=== PATIENT | female | born 1925 | race Caucasian/White ===

== ENCOUNTER → 2016-05-20 | Outpatient (CLI) | payer OTHER, BC ==
[~2016-05-20] MED LIST: ASPI-435 PO; ASPI81TA28 PO; CALC-574 PO; CALC600T37 PO; CALCTAB5 PO; CHOL200010 PO; CMD/25 PO; CMD25 PO; CRG40 PO; DIGO0.1219 PO; ERGO500037 PO; FLUC150T PO; FURO40TA3 PO; HYDR-5688 PO; HYDR25SU20 PR; LSX40 PO; MULT-1027 PO; MULTTAB58 PO; NADO80TA PO; POTA20TA13 PO; TEMA-79 PO; VTMD1000 PO
== END | disposition home or self-care (01) ==
LOC: C.PATHSPEC 14:57
PROVIDERS: ATTEND Obstetrics & Gynecology
DX: R87.619 Unspecified abnormal cytological findings in specimens from cervix uteri (principal)

== ENCOUNTER 2016-06-12 20:22 | Emergency (ER) | payer OTHER, BC ==
[~2016-06-12] VITALS: Ht 170.2 cm; Wt 75.0 kg
[~2016-06-12 20:22] MED LIST changes: -ASPI-435 PO; -CALC-574 PO; -CALC600T37 PO; -CMD25 PO; -CRG40 PO; -DIGO0.1219 PO; -HYDR-5688 PO; -HYDR25SU20 PR; -LSX40 PO; -MULT-1027 PO; -VTMD1000 PO
[2016-06-12 20:25] VITALS: TEMP 37; Ht 170.2 cm; Wt 75.0 kg
[2016-06-12] MEDS ORDERED: LSX40 PO (21:22)
[2016-06-12] MEDS ORDERED: CMD25 PO (21:22)
[2016-06-12] MEDS ORDERED: MULT-1027 PO (21:22)
[2016-06-12] MEDS ORDERED: VTMD1000 PO (21:22)
[2016-06-12] MEDS ORDERED: CALC600T37 PO (21:22)
[2016-06-12] MEDS ORDERED: ASPI-435 PO (21:22)
[2016-06-12] MEDS ORDERED: CRG40 PO (21:22)
[2016-06-12] MEDS ORDERED: DIGO0.1219 PO (21:24)
--- NOTE | 2016-06-12 21:24 | DIAGNOSTIC IMAGING REPORT ---
LEFT SHOULDER MIN 2 VIEWS ROUTINE CLINICAL HISTORY: left shoulder pain pain COMPARISON: None. DISCUSSION: Considerable degenerative change acromioclavicular and glenohumeral joint. Moderate calcific supraspinatus tendinitis. Moderate synovial calcification. No well-defined fracture or dislocation. There is no evidence for soft tissue swelling. IMPRESSION: 1. Severe degenerative change. 2. Moderate calcific supraspinatus tendinitis. 3. Degenerative synovial calcifications. 4. No evidence for fracture or dislocation. Electronically signed by: Jamey Fletcher M.D. 06/12/2016 9:22 PM Dictated Date/Time: 06/12/2016 9:22 PM
[2016-06-12] MEDS ORDERED: HYDROCODONE/APAP 2.5MG/108MG ELIX 5 ML UDP PO PRN (21:45)
[2016-06-12] MEDS ORDERED: HYDROCODONE/ACETAMOPHEN 5/325MG TAB PO ONE (21:45)
[2016-06-12] MEDS ORDERED: HYDR-5688 PO (22:19)
[2016-06-12] MEDS ORDERED: NORCO 5/325MG HOME PACK PO ONE (22:30)
[2016-06-12 22:49] VITALS: BP 126/70; PULSE 66; O2SAT 99
--- NOTE | 2016-06-13 00:40 | EMERGENCY ROOM VISIT NOTE ---
History Report prepared by Zari: Ganesh Sadler Under the Supervision of: Dr. Andrea Howell D.O. First contact with patient: 20:29 Chief Complaint: SHOULDER PAIN Stated Complaint: SORE LEFT SHOULDER History of Present Illness The patient is a 89 year old female who presents to the Emergency Room with complaints of constant pain in her left shoulder since yesterday. The patient states that she was reaching for something in a high cupboard when she injured her left shoulder. The patient's current pain is worsened with movement. She denies any tingling, numbness, or weakness in the left arm. She took Tylenol at 1630 this evening. Her pain is significantly worsened with movement. Patient has not bites at this time. Source of History: patient Onset: One day [employer] Position: shoulder (left) Timing: constant Modifying Factors (Worsening): movement Associated Symptoms: No numbness, No weakness Review of Systems See HPI for pertinent positives & negatives. A total of 10 systems reviewed and were otherwise negative. Past Medical & Surgical Medical Problems: (1) Atrial fibrillation (2) HYPERPARATHYROIDISM, UNSPECIFIED (3) HYPERTENSION NOS (4) PURE HYPERCHOLESTEROLEM Atrial fibrillation Family History FH: cancer Hypertension Social History Smoking Status: Never Smoker Drug Use: none Marital Status: Housing Status: lives alone Occupation Status: retired Current/Historical Medications Scheduled Aspirin (Aspirin 81), 81 MG PO HS Calcium (Calcium), 600 MG PO BID Cholecalciferol (Vitamin D3), 1,000 INTERUNIT PO HS Furosemide (Furosemide), 40 MG PO QAM Multiple Vitamin (Multi Vitamin), 1 TAB PO HS Nadolol (Nadolol), 120 MG PO QAM Potassium Chloride Microencaps (Potassium Chloride Er), 40 MEQ PO DAILY Warfarin Sod (Coumadin), 2.5 MG PO DAILY Scheduled PRN Digoxin (Digox), 125 MCG PO DAILY PRN for ATRIAL FIBRILLATION Hydrocodone/Acetaminophen 5MG/325MG ([place] 5MG/325MG), 1 TAB PO TID PRN for Pain Temazepam (Restoril), 15 MG PO HS PRN Allergies Coded Allergies: Lisinopril (Verified Allergy, Unknown, back pain, 06/12/16) Acetaminophen (Verified Adverse Reaction, Mild, nausea and vomiting, ) Cantaloupe (Verified Adverse Reaction, Mild, STOMACH UPSET, 06/12/16) Oxycodone (Verified Adverse Reaction, Mild, nausea and vomiting, 06/12/16) Physical Exam Vital Signs Date Time Temp Pulse Resp B/P Pulse Ox O2 Delivery O2 Flow Rate FiO2 06/12/16 22:49 66 126/70 99 06/12/16 20:25 37.0 117 20 195/101 99 Room Air Physical Exam GENERAL: Patient is sitting up in bed, holding left arm, alert, disheveled, no distress, non-toxic EYE EXAM: normal conjunctiva OROPHARYNX: no exudate, no erythema, lips, buccal mucosa, and tongue normal and mucous membranes are moist NECK: supple, no nuchal rigidity, no adenopathy, non-tender LUNGS: Clear to auscultation. Normal chest wall mechanics HEART: Tachycardiac. no murmurs, S1 normal and S2 normal ABDOMEN: abdomen soft, non-tender, normo-active bowel sounds, no masses, no rebound or guarding. SKIN: no rashes and no bruising UPPER EXTREMITIES: Tenderness to palpation over the left humeral head and left trapezius. Pain with abduction, flexion, and extension of the shoulder. Flexion and extension of the shoulder, elbow, wrist grasp and abduction digit 5/5. Radial pulses are 2/4. LOWER EXTREMITIES: No pitting edema. NEURO EXAM: Normal sensorium, cranial nerves II-XII grossly intact, normal speech, no gross weakness of legs. Medical Decision & Procedures ER Provider Diagnostic Interpretation: Xray results per the radiologist and my interpretation. Other results have been interpreted by the radiologist and reviewed by me. LEFT SHOULDER MIN 2 VIEWS ROUTINE CLINICAL HISTORY: left shoulder pain pain COMPARISON: None. DISCUSSION: Considerable degenerative change acromioclavicular and glenohumeral joint. Moderate calcific supraspinatus tendinitis. Moderate synovial calcification. No well-defined fracture or dislocation. There is no evidence for soft tissue swelling. IMPRESSION: 1. Severe degenerative change. 2. Moderate calcific supraspinatus tendinitis. 3. Degenerative synovial calcifications. 4. No evidence for fracture or dislocation. Electronically signed by: Jamey Fletcher M.D. 06/12/2016 9:22 PM Dictated Date/Time: 06/12/2016 9:22 PM Medications Administered Medications (Trade) Dose Ordered Sig/Tequila Route Start Time Stop Time Status Last Admin Dose Admin Acetaminophen/ Hydrocodone Bitart ([place] 5/325 Tab) 1 tab NOW ONCE PO 06/12/16 21:45 06/12/16 21:46 DC 06/12/16 21:50 1 TAB Acetaminophen/ Hydrocodone Bitart ([place] 5/325mg Home Pack) 1 homepack UD ONCE PO 06/12/16 22:30 06/12/16 22:31 DC 06/12/16 22:32 1 HOMEPACK ED Course ED COURSE: Vital signs were reviewed and showed Hypertensive Vitals The patients medical record was reviewed The above diagnostic studies were performed and reviewed. ED treatments and interventions as stated above. 2041: The patient was evaluated in room A9. A complete history and physical examination was performed. 2144: Ordered Acetaminophen 1 tablet PO, Acetaminophen 10 mL PO. 2229: Ordered Acetaminophen 1 homepack PO. 2230: Upon reevaluation, the patient is resting comfortably.I discussed my findings with the patient and she understands and agrees with the treatment plan. Based on the patients age, coexisting illnesses, exam and lab findings the decision to treat as an outpatient was made. The patient remained stable while under my care. The patient appeared well at the time of discharge. Medical Decision Differential diagnosis: Etiologies such as fracture, dislocation, intra-abdominal, pneumothorax, intrathoracic , intracranial, neurologic, as well as other traumatic pathologies were entertained. The patient's history was concerning for traumatic injury. Patient is complaining of severe left shoulder pain which started when she was reaching into a cabinet last night. She has no weakness in her arm. She completed neurologically intact. No trauma. X-rays of the shoulder show calcified tendinitis along with arthritis. She is given oral narcotic with improvement in her pain. She is discharged follow-up with orthopedics on Wednesday. Discussed with Pt concerning signs and symptoms to watch out for. Pt was instructed to follow up with their PCP and discussed with the patient their option to return to the ED at anytime for persistent or worsening symptoms. The appropriate anticipatory guidance and out-patient management, including indications for return to the emergency department, were explained at length to the patient and understood. Impression Primary Impression: Shoulder pain, acute Scribe Attestation The scribe's documentation has been prepared under my direction and personally reviewed by me in its entirety. I confirm that the note above accurately reflects all work, treatment, procedures, and medical decision making performed by me. Departure Information Dispostion Home / Self-Care Prescriptions Hydrocodone/Acetaminophen 5MG/325MG ([place] 5MG/325MG) Tab 1 TAB PO TID Y for Pain, #20 TAB PRN PAIN Prov: Andrea Howell, DO 06/12/16 Referrals Preston Vásquez M.D. (PCP) Forms HOME CARE DOCUMENTATION FORM, IMPORTANT VISIT INFORMATION Patient Instructions My [facility] Additional Instructions Please follow up with your primary care doctor with in the next 24 hours. Any worsening of your symptoms, please return to the ED immediately. This includes any fevers greater than 100.4, worsening pain, weakness in your arm, numbness in her arm, or any other concerning signs or symptoms from your stand point. Please do not take Tylenol/acetaminophen in combination with your prescription. You were given medications during this visit that will inhibit your ability to drive, operate machinery and work. Please do NOT drive, operate machinery or work for the next 12hrs. You were also given a prescription for a narcotic. While taking this medication you should also not drive, operate machinery and or work. Problem Qualifiers Primary Impression: Shoulder pain, acute Laterality: left Qualified Codes: M25.512 - Pain in left shoulder
== END 2016-06-12 22:50 | disposition home or self-care (01) ==
LOC: C.EDB 20:23 → C.EDA 22:50
DX: M25.512 Pain in left shoulder (principal); I48.91 Unspecified atrial fibrillation; E78.00 Pure hypercholesterolemia, unspecified; I10 Essential (primary) hypertension; Z79.01 Long term (current) use of anticoagulants; Z82.49 Family history of ischemic heart disease and other diseases of the circulatory system

== ENCOUNTER → 2016-07-24 | Outpatient (CLI) | payer OTHER, BC ==
[~2016-07-24] MED LIST changes: +ASPI-435 PO; -ASPI81TA28 PO; +CALC-574 PO; +CALC600T37 PO; -CALCTAB5 PO; -CHOL200010 PO; -CMD/25 PO; +CMD25 PO; +CRG40 PO; +DIGO0.1219 PO; -ERGO500037 PO; -FLUC150T PO; -FURO40TA3 PO; +HYDR-5688 PO; +HYDR25SU20 PR; +LSX40 PO; +MULT-1027 PO; -MULTTAB58 PO; +VTMD1000 PO
[2016-07-24 12:23] LABS: BASO % 0.2 %; BASO ABS # 0.02 K/uL (0-0.2); COMPLETE YES; EOS % 2.1 %; HEMATOCRIT 46.8 % (37-47); IG% 0.1 %; LYMPH % 24.3 %; LYMPH ABS # 1.99 K/uL (1.2-3.4); MEAN CELL VOLUME 96.7 fL (80-100); MEAN CORPUSCULAR HEMOGLOBIN 31.8 pg (25-34); MEAN CORPUSCULAR HGB CONC 32.9 g/dl (32-36); MEAN PLATELET VOLUME 10.5 fL (7.4-10.4); MONO % 7.8 %; NEUT % 65.5 %; PLATELET COUNT 273 K/uL (130-400); RED BLOOD COUNT 4.84 M/uL (4.2-5.4); WHITE BLOOD COUNT 8.18 K/uL (4.8-10.8)
[2016-07-24 12:33] LABS: ALT/SGPT 28 U/L (12-78); AST/SGOT 24 U/L (15-37); BLOOD UREA NITROGEN 26 mg/dl (7-18); BUN/CREATININE RATIO 25.6 (10-20); CALCIUM 11.2 mg/dl (8.5-10.1); CARBON DIOXIDE 30 mmol/L (21-32); CHLORIDE 104 mmol/L (98-107); CHOLESTEROL 165 mg/dl (0-200); GLUCOSE 121 mg/dl (70-99); POTASSIUM 4.2 mmol/L (3.5-5.1); SODIUM 141 mmol/L (136-145); TRIGLYCERIDES 118 mg/dl (0-150); VERY LOW DENSITY LIPOPROT CALC 24 mg/dl
[2016-07-24 12:43] LABS: ALB/GLOB RATIO 1.1 (0.9-2); ALKALINE PHOSPHATASE 98 U/L (45-117); CHOLESTEROL/HDL RATIO 3.4; HDL CHOLESTEROL 49 mg/dl; LDL CHOLESTEROL CALCULATED 92 mg/dl
== END | disposition home or self-care (01) ==
LOC: C.LABPVFM 08:51
PROVIDERS: ATTEND Internal Medicine
DX: E21.3 Hyperparathyroidism, unspecified (principal); E78.5 Hyperlipidemia, unspecified

== ENCOUNTER → 2016-08-13 | Outpatient (CLI) | payer OTHER, BC ==
[2016-08-13 12:57] LABS: BLOOD UREA NITROGEN 28 mg/dl (7-18); BUN/CREATININE RATIO 29.2 (10-20); CALCIUM 11.1 mg/dl (8.5-10.1); CARBON DIOXIDE 33 mmol/L (21-32); CHLORIDE 105 mmol/L (98-107); CREATININE 0.95 mg/dl (0.60-1.20); GLUCOSE 78 mg/dl (70-99); POTASSIUM 3.8 mmol/L (3.5-5.1); SODIUM 143 mmol/L (136-145)
== END | disposition home or self-care (01) ==
LOC: C.LABPVFM 10:27
PROVIDERS: ATTEND Internal Medicine
DX: I48.0 Paroxysmal atrial fibrillation (principal); E21.3 Hyperparathyroidism, unspecified

== ENCOUNTER → 2016-09-18 | Outpatient (CLI) | payer OTHER, BC ==
[2016-09-18 18:58] LABS: BLOOD UREA NITROGEN 25 mg/dl (7-18); CALCIUM 10.6 mg/dl (8.5-10.1); CARBON DIOXIDE 34 mmol/L (21-32); CHLORIDE 105 mmol/L (98-107); GLUCOSE 85 mg/dl (70-99); POTASSIUM 4.1 mmol/L (3.5-5.1); SODIUM 144 mmol/L (136-145)
== END | disposition home or self-care (01) ==
LOC: C.LABPVFM 14:31
PROVIDERS: ATTEND Internal Medicine
DX: E83.52 Hypercalcemia (principal); E21.3 Hyperparathyroidism, unspecified

== ENCOUNTER → 2016-10-28 | Outpatient (CLI) | payer OTHER, BC | END | disposition home or self-care (01) | LOC: C.PATHSPEC 17:32 | PROVIDERS: ATTEND Obstetrics & Gynecology | DX: R87.619 Unspecified abnormal cytological findings in specimens from cervix uteri (principal) ==

== ENCOUNTER → 2016-10-28 | Outpatient (CLI) | payer OTHER, BC | END | disposition home or self-care (01) | LOC: C.PAPS 17:57 | PROVIDERS: ATTEND Obstetrics & Gynecology | DX: R87.619 Unspecified abnormal cytological findings in specimens from cervix uteri (principal) ==

== ENCOUNTER 2017-01-01 09:37 | Emergency (ER) | payer OTHER, BC ==
[~2017-01-01] VITALS: Ht 170.2 cm; Wt 77.5 kg
[~2017-01-01 09:37] MED LIST changes: -CALC-574 PO; -HYDR-5688 PO; -HYDR25SU20 PR; -NADO80TA PO
[2017-01-01 09:48] VITALS: TEMP 36.4
[2017-01-01 10:23] LABS: BASO % 0.2 %; BASO ABS # 0.01 K/uL (0-0.2); COMPLETE YES; EOS % 1.7 %; HEMATOCRIT 41.2 % (37-47); IG% 0.2 %; LYMPH % 18.9 %; LYMPH ABS # 1.19 K/uL (1.2-3.4); MEAN CORPUSCULAR HEMOGLOBIN 32.2 pg (25-34); MEAN CORPUSCULAR HGB CONC 33.5 g/dl (32-36); MEAN PLATELET VOLUME 9.4 fL (7.4-10.4); MONO % 7.9 %; NEUT % 71.1 %; PLATELET COUNT 253 K/uL (130-400); RED BLOOD COUNT 4.29 M/uL (4.2-5.4); WHITE BLOOD COUNT 6.29 K/uL (4.8-10.8)
[2017-01-01] MEDS ORDERED: PANTOprazole INJ 80 MG in DEXTROSE 5% 100ML IV ONE (10:30)
[2017-01-01 10:31] LABS: INR 2.6 (0.9-1.1); PARTIAL THROMBOPLASTIN RATIO 1.3; PROTHROMBIN TIME (PATIENT) 28.4 SECONDS (9.0-12.0)
[2017-01-01 10:36] VITALS: O2SAT 96
--- NOTE | 2017-01-01 10:36 | EMERGENCY ROOM VISIT NOTE ---
History Report prepared by Zari: Luci Sánchez Under the Supervision of: Dr. Orestes Ramirez M.D. First contact with patient: 09:54 Chief Complaint: RECTAL BLEEDING Stated Complaint: BLOOD IN STOOL Nursing Triage Summary: Pt reports bright red blood in bowel movements beginning last night. Tired. Denies SOB. Denies previous hx of GI bleed. Denies pain. Hx of endometrial cancer 5-6+ years ago. History of Present Illness The patient is a 89 year old female who presents to the Emergency Room with complaints of intermittent rectal bleeding that began around 9pm last night. The patient had a bowel movement and states that there was a large amount of blood in the toilet bowl afterward. This morning she had a bowel movement and she was still bleeding. The patient is on Coumadin and aspirin. She denies abdominal pain and any previous history of a GI bleed. She does have a history of endometrial cancer. She is unsure if she ever had a blood transfusion before. Source of History: patient Onset: 9pm yesterday Position: other (rectum) Quality: other (bleeding) Timing: intermittent Modifying Factors (Worsening): defecation Associated Symptoms: No abdominal pain Review of Systems See HPI for pertinent positives & negatives. A total of 10 systems reviewed and were otherwise negative. Past Medical & Surgical Medical Problems: (1) Atrial fibrillation (2) HYPERPARATHYROIDISM, UNSPECIFIED (3) HYPERTENSION NOS (4) PURE HYPERCHOLESTEROLEM (5) Rectal bleeding Family History FH: cancer Hypertension Social History Smoking Status: Never Smoker Drug Use: none Marital Status: Housing Status: lives alone Occupation Status: retired Current/Historical Medications Scheduled Aspirin (Aspirin 81), 81 MG PO HS Calcium Carbonate-Cholecalcife (Calcium 600+D3 600-400 mg-Unit), 1 TAB PO BID Cholecalciferol (Vitamin D3), 1,000 INTERUNIT PO HS Furosemide (Furosemide), 40 MG PO QAM Hydrocortisone Acetate (Rectal (Anusol-Hc), 1 SUPP AK BID Multiple Vitamin (Multi Vitamin), 1 TAB PO HS Nadolol ([place]), 80 MG PO BID Potassium Chloride Microencaps (Potassium Chloride Er), 40 MEQ PO DAILY Warfarin Sod (Coumadin), 2.5 MG PO UD Scheduled PRN Digoxin (Digox), 125 MCG PO DAILY PRN for ATRIAL FIBRILLATION Temazepam (Restoril), 15 MG PO HS PRN Allergies Coded Allergies: Acetaminophen (Verified Adverse Reaction, Mild, nausea and vomiting, ) Cantaloupe (Verified Adverse Reaction, Mild, STOMACH UPSET, 01/01/17) Oxycodone (Verified Adverse Reaction, Mild, nausea and vomiting, 01/01/17) Physical Exam Vital Signs Date Time Temp Pulse Resp B/P (MAP) Pulse Ox O2 Delivery O2 Flow Rate FiO2 01/01/17 13:11 82 01/01/17 13:00 81 18 181/104 96 Room Air 01/01/17 12:45 78 18 161/99 95 Room Air 01/01/17 12:21 81 18 165/96 96 Room Air 01/01/17 12:01 89 18 155/114 97 Room Air 01/01/17 11:25 98 Room Air 01/01/17 11:04 87 24 195/121 98 Room Air 01/01/17 10:43 83 01/01/17 10:36 96 Room Air 01/01/17 09:48 36.4 98 18 168/102 97 Room Air Physical Exam GENERAL: Patient is a healthy-appearing well-nourished elderly female HEAD: Normocephalic atraumatic EYES: Ocular movements intact pupils equal and react to light OROPHARYNX mucous membranes are moist no exudates present no erythema or edema present NECK: Supple no nuchal rigidity CHEST: Good equal expansion LUNGS: Clear and equal to auscultation CARDIAC: Normal S1 and S2 ABDOMEN: Soft nontender no guarding RECTUM: Dark reddish/black blood grossly present BACK: No CVA tenderness EXTREMITIES: No pain upon palpation normal muscle strength in all groups no clubbing cyanosis or edema NEURO: Patient is following commands and answering questions appropriately. Alert and oriented x3 Cranial Nerves 2-12 grossly intact Medical Decision & Procedures Laboratory Results 01/01/17 10:08 Red Blood Count 4.29, Mean Corpuscular Volume 96.0, Mean Corpuscular Hemoglobin 32.2, Mean Corpuscular Hemoglobin Concent 33.5, Mean Platelet Volume 9.4, Neutrophils (%) (Auto) 71.1, Lymphocytes (%) (Auto) 18.9, Monocytes (%) (Auto) 7.9, Eosinophils (%) (Auto) 1.7, Basophils (%) (Auto) 0.2, Neutrophils # (Auto) 4.47, Lymphocytes # (Auto) 1.19, Monocytes # (Auto) 0.50, Eosinophils # (Auto) 0.11, Basophils # (Auto) 0.01 01/01/17 10:06 Test 01/01/17 10:06 01/01/17 10:08 01/01/17 10:17 Prothrombin Time 28.4 SECONDS (9.0-12.0) Prothromb Time International Ratio 2.6 (0.9-1.1) Activated Partial Thromboplast Time 32.7 SECONDS (21.0-31.0) Partial Thromboplastin Ratio 1.3 Est Creatinine Clear Calc Drug Dose 44.5 ml/min Estimated GFR () 64.0 Estimated GFR (Non- 55.2 BUN/Creatinine Ratio 27.6 (10-20) Calcium Level 10.4 mg/dl (8.5-10.1) Total Bilirubin 1.0 mg/dl (0.2-1) Direct Bilirubin 0.2 mg/dl (0-0.2) Aspartate Amino Transf (AST/SGOT) 23 U/L (15-37) Alanine Aminotransferase (ALT/SGPT) 30 U/L (12-78) Alkaline Phosphatase 90 U/L (45-117) Total Protein 7.1 gm/dl (6.4-8.2) Albumin 3.6 gm/dl (3.4-5.0) Lipase 169 U/L (73-393) White Blood Count 6.29 K/uL (4.8-10.8) Red Blood Count 4.29 M/uL (4.2-5.4) Hemoglobin 13.8 g/dL (12.0-16.0) Hematocrit 41.2 % (37-47) Mean Corpuscular Volume 96.0 fL (80-100) Mean Corpuscular Hemoglobin 32.2 pg (25-34) Mean Corpuscular Hemoglobin Concent 33.5 g/dl (32-36) Platelet Count 253 K/uL (130-400) Mean Platelet Volume 9.4 fL (7.4-10.4) Neutrophils (%) (Auto) 71.1 % Lymphocytes (%) (Auto) 18.9 % Monocytes (%) (Auto) 7.9 % Eosinophils (%) (Auto) 1.7 % Basophils (%) (Auto) 0.2 % Neutrophils # (Auto) 4.47 K/uL (1.4-6.5) Lymphocytes # (Auto) 1.19 K/uL (1.2-3.4) Monocytes # (Auto) 0.50 K/uL (0.11-0.59) Eosinophils # (Auto) 0.11 K/uL (0-0.5) Basophils # (Auto) 0.01 K/uL (0-0.2) RDW Standard Deviation 53.9 fL (36.4-46.3) RDW Coefficient of Variation 15.4 % (11.5-14.5) Immature Granulocyte % (Auto) 0.2 % Immature Granulocyte # (Auto) 0.01 K/uL (0.00-0.02) Bedside Hemoglobin 14.3 g/dl (12.0-16.0) Bedside Hematocrit 42 % (37-47) Bedside Sodium 141 mEq/L (135-144) Bedside Potassium 3.9 mEq/L (3.3-5.0) Bedside Chloride 102 mEq/L (101-112) Bedside Total CO2 30 mEq/l (24-31) Anion Gap 14.0 mmol/L (16-25) Bedside Blood Urea Nitrogen 29 mg/dl (7-18) Bedside Creatinine 0.9 mg/dl (0.6-1.3) Bedside Glucose (other) mg/dl (70-99) Bedside Ionized Calcium ([place]) 1.37 mmol/l (1.12-1.32) Labs reviewed by ED physician. Medications Administered Medications (Trade) Dose Ordered Sig/Tequila Route Start Time Stop Time Status Last Admin Dose Admin Pantoprazole Sodium 80 mg/ Dextrose 120 ml @ 480 mls/hr TODAY@1030 ONCE IV 01/01/17 10:30 01/01/17 10:44 DC 01/01/17 10:40 480 MLS/HR Pantoprazole Sodium 40 mg/ Dextrose 100 ml @ 20 mls/hr Q5H IV 01/01/17 10:45 01/01/17 13:45 DC 01/01/17 11:04 20 MLS/HR Phytonadione 10 mg/Sodium Chloride 51 ml @ 102 mls/hr ONE STAT IV 01/01/17 12:05 01/01/17 12:34 DC 01/01/17 12:23 102 MLS/HR ECG Indication: other Rate (beats per minute): 82 Rhythm: atrial fibrillation Findings: no acute ischemic change, other (old septal infarct) Comparison ECG Date: no prior available ED Course 0954: Past medical records reviewed. The patient was evaluated in room A4B. A complete history and physical examination was performed. 1003: Protonix IV Bolus/Drip 1056: I spoke with Dr. Gonsales. We discussed the patients case. The patient will be evaluated by the [facility] for further management. 1102: I reassessed the patient at this time. She is feeling better and resting comfortably. I discussed the results and treatment plan with the patient. I answered all pertaining questions that she had. She expressed understanding and verbalized agreement. Medical Decision Differential diagnosis: Etiologies such as diverticulosis, AVM, coagulopathy, colitis, inflammatory bowel disease, malignancy, Salud-Singh tear, esophagitis, peptic ulcer disease , variceal bleed, gastritis, epistaxis, fissure, hemorrhoids, as well as others were entertained. This is an 89-year-old female who is on Coumadin that presents emergency part for GI bleed. The patient's hemoglobin is stable however there is dark red blood on examination. For this reason I did discuss the case with the hospitalist service and started the patient on proton is bolus and drip however the patient wishes to be discharged home. Medication Reconcilliation Current Medication List: was personally reviewed by me Blood Pressure Screening Patient's blood pressure: Elevated blood pressure Blood pressure disposition: Referred to PCP Consults Time Called: 1054 Consulting Physician: Dr. Gonsales Returned Call: [address] Gonsales. We discussed the patients case. The patient will be evaluated by the [facility] for further management. Impression Primary Impression: GI bleed Scribe Attestation The scribe's documentation has been prepared under my direction and personally reviewed by me in its entirety. I confirm that the note above accurately reflects all work, treatment, procedures, and medical decision making performed by me. Departure Information Dispostion Being Evaluated By Hospitalist Prescriptions Hydrocortisone Acetate (Rectal (ANUSOL-HC) 25 Mg Sup 1 SUPP AK BID for 7 Days, #14 SUPP Prov: Andrea Elaine D.O. 01/01/17 Referrals Preston Vásquez M.D. (PCP) Patient Instructions My [facility] Problem Qualifiers Primary Impression: GI bleed GI bleed type/associated pathology: unspecified gastrointestinal hemorrhage type Qualified Codes: K92.2 - Gastrointestinal hemorrhage, unspecified
[2017-01-01 10:42] LABS: BUN/CREATININE RATIO 27.6 (10-20); CALCIUM 10.4 mg/dl (8.5-10.1); CREATININE 0.92 mg/dl (0.60-1.20); POTASSIUM 3.8 mmol/L (3.5-5.1)
[2017-01-01] MEDS ORDERED: PANTOprazole INJ 40 MG in DEXTROSE 5% 100ML IV SCH (10:45)
[2017-01-01] MEDS ORDERED: NADO80TA PO (10:45)
[2017-01-01 11:25] VITALS: O2SAT 98; Ht 170.2 cm; Wt 77.5 kg
[2017-01-01] MEDS ORDERED: PHYTONADIONE INJ 10 MG in SODIUM CHLORIDE 0.9% 50ML 50 ML IV STA (12:05)
[2017-01-01 12:14] LABS: ISTAT CARBON DIOXIDE 30 mEq/l (24-31); ISTAT CHLORIDE 102 mEq/L (101-112); ISTAT CREATININE 0.9 mg/dl (0.6-1.3); ISTAT HEMATOCRIT 42 % (37-47); ISTAT HEMOGLOBIN 14.3 g/dl (12.0-16.0); ISTAT IONIZED CALCIUM 1.37 mmol/l (1.12-1.32); ISTAT SODIUM 141 mEq/L (135-144)
[2017-01-01] MEDS ORDERED: CALC-574 PO (12:39)
[2017-01-01] MEDS ORDERED: POLYETHYLENE (MIRALAX) 17 GM PACK PO PRN (12:45)
[2017-01-01] MEDS ORDERED: WARFARIN SOD 2.5 MG TAB PO SCH (12:45)
[2017-01-01] MEDS ORDERED: ALUMINUM/MAGNESIUM/SIMETH (MAALOX MAX) 30 ML UDC PO PRN (12:45)
[2017-01-01] MEDS ORDERED: ONDANSETRON INJ 2 MG/ML 2 ML VIAL IV PRN (12:45)
[2017-01-01] MEDS ORDERED: MAGNESIUM HYDROXIDE SUSP 30 ML UDC PO PRN (12:45)
[2017-01-01] MEDS ORDERED: DIGOXIN 0.125 MG TAB PO PRN (12:45)
[2017-01-01 13:00] VITALS: BP 181/104; O2SAT 96
[2017-01-01] MEDS ORDERED: IV FLUIDS COMPLETED PRN (13:00)
--- NOTE | 2017-01-01 13:07 | History and Physical ---
History & Physical Date & Time of Service: Jan 01, 2017 at 12:45 Chief Complaint: Blood In Stool Primary Care Physician: Preston Vásquez M.D. History of Present Illness Source: patient, family (daughter at bedside), clinic records, hospital records Emergency department consultation This is an 89 y/o female with a history of HTN, HLD, paroxysmal a-fib on chronic anticoagulation, edema, hyperparathyroidism, h/o endometrial cancer s/p hysterectomy and radiation, and osteoporosis who presented to the ED on 01/01 with bright red blood per rectum. The patient states that last night the patient noticed bright red blood while having a bowel movement. Her stool at that time was formed and normal in color. She woke up around 0200 and had another bloody bowel movement, and this continued after waking up again later in the morning. She states that her stool became progressively looser. The patient states that when she went to the bathroom in the ED, however, she did not have a bowel movement and saw a small amount of blood upon wiping only. The patient is on chronic anticoagulation (warfarin) due to her paroxysmal a- fib as well as aspirin. The patient denies weakness, fatigue, dizziness, or lightheadedness. She has had a colonoscopy in the past, but this was over 10 years ago. She states the study was normal. The patient denies fevers, chills , sweats, chest pain, palpitations, claudication, cough, wheezing, shortness of breath, nausea, vomiting, abdominal pain, dysuria, hematuria, urinary retention , paralysis, weakness, numbness and tingling. Past Medical/Surgical History Medical Problems: (1) Paroxysmal atrial fibrillation Status: Chronic (2) HYPERPARATHYROIDISM, UNSPECIFIED Status: Chronic (3) HYPERTENSION NOS Status: Chronic (4) PURE HYPERCHOLESTEROLEM Status: Chronic Edema H/o endometrial cancer s/p hysterectomy and radiation Osteoporosis Insomnia Family History Diabetes mellitus FH: cancer (breast, uterine) Hypertension Myocardial infarction Stroke Systemic lupus erythematosus Social History Smoking Status: Never Smoker Smokeless Tobacco Use: No Alcohol Use: none Drug Use: none Marital Status: Housing status: lives alone Occupational Status: retired Immunizations History of Influenza Vaccine: Yes Influenza Vaccine Date: Jan 15, 2012 History of Tetanus Vaccine?: Yes Tetanus Immunization Date: Oct 15, 2007 History of Pneumococcal: Yes Pneumococcal Date: Feb 13, 2009 History of Hepatitis B Vaccine: No Multi-Drug Resistant Organisms History of MDRO: No Allergies Coded Allergies: Acetaminophen (Verified Adverse Reaction, Mild, nausea and vomiting, ) Cantaloupe (Verified Adverse Reaction, Mild, STOMACH UPSET, 01/01/17) Oxycodone (Verified Adverse Reaction, Mild, nausea and vomiting, 01/01/17) Home Medications Scheduled Aspirin (Aspirin 81), 81 MG PO HS Calcium Carbonate-Cholecalcife (Calcium 600+D3 600-400 mg-Unit), 1 TAB PO BID Cholecalciferol (Vitamin D3), 1,000 INTERUNIT PO HS Furosemide (Furosemide), 40 MG PO QAM Hydrocortisone Acetate (Rectal (Anusol-Hc), 1 SUPP NH BID Multiple Vitamin (Multi Vitamin), 1 TAB PO HS Nadolol (Corgard), 80 MG PO BID Potassium Chloride Microencaps (Potassium Chloride Er), 40 MEQ PO DAILY Warfarin Sod (Coumadin), 2.5 MG PO UD Scheduled PRN Digoxin (Digox), 125 MCG PO DAILY PRN for ATRIAL FIBRILLATION Temazepam (Restoril), 15 MG PO HS PRN Review of Systems Constitutional: No fever, No chills, No sweats, No weakness, No fatigue Eyes: No worsening of vision, No eye pain, No diplopia ENT: No hearing loss, No sore throat, No trouble swallowing Respiratory: No cough, No wheezing, No shortness of breath, No dyspnea on exertion Cardiovascular: No chest pain, No claudication, No palpitations Abdomen: + problem reported (BRBPR), No pain, No nausea, No vomiting Musculoskeletal: No joint pain, No muscle pain, No calf pain Genitourinary - Female: No dysuria, No urinary retention, No hematuria Neurologic: No paralysis, No weakness, No numbness/tingling Integumentary: No rash, No itch, No color change Physical Exam Vital Signs Date Time Temp Pulse Resp B/P (MAP) Pulse Ox O2 Delivery O2 Flow Rate FiO2 01/01/17 12:21 81 18 165/96 96 Room Air 01/01/17 12:01 89 18 155/114 97 Room Air 01/01/17 11:25 98 Room Air 01/01/17 11:04 87 24 195/121 98 Room Air 01/01/17 10:43 83 01/01/17 10:36 96 Room Air 01/01/17 09:48 36.4 98 18 168/102 97 Room Air General appearance: Well-developed, well-nourished, no apparent distress Head: Normocephalic, atraumatic Eyes: Normal inspection, PERRL, EOMI ENT: Normal ENT inspection, hearing grossly normal, pharynx normal Neck: Supple, no JVD, trachea midline Respiratory/Chest: Lungs clear to auscultation, normal breath sounds, no respiratory distress Cardiovascular: +Irregularly irregular, rate controlled. No gallop, no murmur Abdomen/GI: Normal bowel sounds, non-tender, soft Extremities/Musculoskeletal: +Trace edema. Normal inspection, no calf tenderness Neurological/Psych: Alert, normal mood/affect, oriented x 3 Skin: Normal color, warm/dry, no rash Diagnostics Laboratory Results Results Past 24 Hours Test 01/01/17 10:06 01/01/17 10:08 01/01/17 10:17 Range/Units Prothrombin Time 28.4 9.0-12.0 SECONDS Prothromb Time International Ratio 2.6 0.9-1.1 Activated Partial Thromboplast Time 32.7 21.0-31.0 SECONDS Partial Thromboplastin Ratio 1.3 Sodium Level 141 136-145 mmol/L Potassium Level 3.8 3.5-5.1 mmol/L Chloride Level 105 98-107 mmol/L Carbon Dioxide Level 31 21-32 mmol/L Anion Gap 5.0 14.0 16-25 mmol/L Blood Urea Nitrogen 25 7-18 mg/dl Creatinine 0.92 0.60-1.20 mg/dl Est Creatinine Clear Calc Drug Dose 44.5 ml/min Estimated GFR () 64.0 Estimated GFR (Non- 55.2 BUN/Creatinine Ratio 27.6 10-20 Random Glucose 101 70-99 mg/dl Calcium Level 10.4 8.5-10.1 mg/dl Total Bilirubin 1.0 0.2-1 mg/dl Direct Bilirubin 0.2 0-0.2 mg/dl Aspartate Amino Transf (AST/SGOT) 23 15-37 U/L Alanine Aminotransferase (ALT/SGPT) 30 12-78 U/L Alkaline Phosphatase 90 45-117 U/L Total Protein 7.1 6.4-8.2 gm/dl Albumin 3.6 3.4-5.0 gm/dl Lipase 169 73-393 U/L White Blood Count 6.29 4.8-10.8 K/uL Red Blood Count 4.29 4.2-5.4 M/uL Hemoglobin 13.8 12.0-16.0 g/dL Hematocrit 41.2 37-47 % Mean Corpuscular Volume 96.0 80-100 fL Mean Corpuscular Hemoglobin 32.2 25-34 pg Mean Corpuscular Hemoglobin Concent 33.5 32-36 g/dl Platelet Count 253 130-400 K/uL Mean Platelet Volume 9.4 7.4-10.4 fL Neutrophils (%) (Auto) 71.1 % Lymphocytes (%) (Auto) 18.9 % Monocytes (%) (Auto) 7.9 % Eosinophils (%) (Auto) 1.7 % Basophils (%) (Auto) 0.2 % Neutrophils # (Auto) 4.47 1.4-6.5 K/uL Lymphocytes # (Auto) 1.19 1.2-3.4 K/uL Monocytes # (Auto) 0.50 0.11-0.59 K/uL Eosinophils # (Auto) 0.11 0-0.5 K/uL Basophils # (Auto) 0.01 0-0.2 K/uL RDW Standard Deviation 53.9 36.4-46.3 fL RDW Coefficient of Variation 15.4 11.5-14.5 % Immature Granulocyte % (Auto) 0.2 % Immature Granulocyte # (Auto) 0.01 0.00-0.02 K/uL Bedside Hemoglobin 14.3 12.0-16.0 g/dl Bedside Hematocrit 42 37-47 % Bedside Sodium 141 135-144 mEq/L Bedside Potassium 3.9 3.3-5.0 mEq/L Bedside Chloride 102 101-112 mEq/L Bedside Total CO2 30 24-31 mEq/l Bedside Blood Urea Nitrogen 29 7-18 mg/dl Bedside Creatinine 0.9 0.6-1.3 mg/dl Bedside Glucose (other) 70-99 mg/dl Bedside Ionized Calcium (Eleonora) 1.37 1.12-1.32 mmol/l EKG Reviewed EKG and agree with interpretation as follows: 82 bpm, atrial fibrillation Impression Assessment and Plan 89 y/o female with a history of HTN, HLD, paroxysmal a-fib on chronic anticoagulation, edema, hyperparathyroidism, h/o endometrial cancer s/p hysterectomy and radiation, and osteoporosis who presented to the ED on 01/01 with bright red blood per rectum. Pt otherwise asymptomatic. Afebrile, VSS. EKG no ischemic changes. Hgb 13.8. INR 2.6. Patient is stable without significant bleeding, may be discharged home with close follow up. Rectal bleeding -Pt advised to hold warfarin dose today -She will follow up with PCP tomorrow for a repeat CBC -Pt lives alone, but daughter will stay with her until bleeding resolves -Pt will hold warfarin dose today -Case management will set up follow up with GI for outpatient colonoscopy -Advised that if she develops any symptoms or bleeding worsens to return to the ED for evaluation HTN--stable. BP had been up to 195/121 but repeat BP down to 155/114 -Continue lisinopril 2.5 mg PO qd and nadolol 80 mg PO BID Paroxysmal a-fib--currently in a-fib but rate controlled -Hold warfarin today, otherwise continue 2.5 mg PO 6x/week, 5 mg PO on Wednesday -Pt takes digoxin 125 mcg PO qd prn a-fib Edema -Continue Lasix 40 mg PO qd and KCl supplement Hyperparathyroidism--pt follows with Dr. Veras who is continuing calcium supplement for now although calcium has been trending up Osteoporosis -Continue calcium + vitamin D supplement and endo f/u i personally examined pt and verified all hassan points w [facility] pt seen due to rectal bleeding. initially was discussing with pt ongoing inpatient management due to small but real risk of hemorrhage because of being on aspirin and coumadin. as we discussed things further, she noted that she REALLY preferred outpatient management. discussed risks/benefits and she understands risks and is also willing to return amber if any worsening/concerns/ etc. further she is going to have her daughter stay with her for now to have added measure of safety. she and daughter both want her to go home and again after lengthy discussion understand risks/benefits of this approach vitals stable, Hgb stable, no pallor or icterus, exam as above. ER checked rectal does seem most c/w internal hemorrhoid type pathology -LGI bleeding -despite multiple episodes of bleed, no hemodynamic compromise -plan was to follow overnight, she strongly desires outpatient management - which is not unreasonable -no hemorrhage, no need to reverse coumadin. will have her hold dose tonight -CBC tomorrow -she desires further w/u as to etiology - so refer to GI for colo -follow INR closely -return amber if any worsening Advanced Directives Existing Living Will: Yes Existing Power of [employer]er: Yes (SHER REINA ) VTE Prophylaxis VTE Risk Assessment Done? Y/N: Yes Risk Level: Moderate
[2017-01-01 13:11] VITALS: PULSE 82
[2017-01-01] MEDS ORDERED: HYDR25SU20 PR (13:14)
--- NOTE | 2017-01-01 13:18 | Discharge Instructions ---
Discharge Instructions Date of Service Jan 01, 2017. Admission Reason for Admission: Blood In Stool Discharge Discharge Diagnosis / Problem: blood in stool Discharge Goals Goal(s): Diagnostic testing Activity Recommendations Activity Limitations: resume your previous activity . Instructions / Follow-Up Instructions / Follow-Up it is most likely that the blood relates to hemorrhoids since you've had multiple episodes of bleeding in the last day without any significant signs of hemorrhage, and you really want to go home, it's reasonable to monitor this as an outpatient, although if you have worsening bleeding/recurrent bleeding/persistent bleeding then we will need you to come back we'll want [facility] to go to [facility] tomorrow to have them draw labwork (CBC); if you have any ongoing concerns on how you're doing, have them see you then as well follow your INR daily for the next several days; skip tonight's dose of coumadin use the anusol as an "empiric" treatment to settle down the mostly likely culprit for the bleeding - which would be hemorrhoids we're getting a referral started to get you in with gastroenterology for discussions of doing a colonoscopy to better confirm the source of the bleeding Current Hospital Diet Patient's current hospital diet: AHA Diet (Heart Healthy) Discharge Diet Recommended Diet: Regular Diet Pending Studies Studies pending at discharge: no Medical Emergencies . Who to Call and When: Medical Emergencies: If at any time you feel your situation is an emergency, please call 911 immediately. . Non-Emergent Contact Non-Emergency issues call your: Primary Care Provider, Mobile Application Tester . . "Provider Documentation" section prepared by Andrea Elaine. . VTE Core Measure Inpt VTE Proph given/why not?: Warfarin (Coumadin)
[2017-01-01] MEDS ORDERED: MULTIVITAMIN TAB PO SCH (21:00)
[2017-01-01] MEDS ORDERED: CHOLECALCIFEROL 1000 INTER.UNIT TAB PO SCH (21:00)
[2017-01-01] MEDS ORDERED: ASPIRIN 81 MG ECTAB PO SCH (21:00)
[2017-01-01] MEDS ORDERED: NADOLOL 40 MG TAB PO SCH (21:00)
[2017-01-02] MEDS ORDERED: POTASSIUM CHLORIDE 20 MEQ TABCR PO SCH (09:00)
[2017-01-02] MEDS ORDERED: FUROSEMIDE 40 MG TAB PO SCH (09:00)
== END 2017-01-01 13:38 | disposition home or self-care (01) ==
LOC: C.EDB 09:39 → CANBEDREQ 13:03 → C.EDA 13:38
DX: K92.2 Gastrointestinal hemorrhage, unspecified (principal); I48.91 Unspecified atrial fibrillation; E21.3 Hyperparathyroidism, unspecified; I10 Essential (primary) hypertension; E78.00 Pure hypercholesterolemia, unspecified; Z82.49 Family history of ischemic heart disease and other diseases of the circulatory system; Z79.82 Long term (current) use of aspirin; Z79.01 Long term (current) use of anticoagulants

== ENCOUNTER → 2017-01-19 | Outpatient (CLI) | payer OTHER, BC ==
[~2017-01-19] MED LIST changes: +CALC-574 PO; -CALC600T37 PO; -CRG40 PO; +NADO80TA PO
[2017-01-19 13:52] LABS: BLOOD UREA NITROGEN 23 mg/dl (7-18); BUN/CREATININE RATIO 28.5 (10-20); CARBON DIOXIDE 31 mmol/L (21-32); CHLORIDE 105 mmol/L (98-107); CHOLESTEROL 141 mg/dl (0-200); GLUCOSE 105 mg/dl (70-99); SODIUM 140 mmol/L (136-145); TRIGLYCERIDES 129 mg/dl (0-150); VERY LOW DENSITY LIPOPROT CALC 26 mg/dl
[2017-01-19 13:53] LABS: CHOLESTEROL/HDL RATIO 3.1; HDL CHOLESTEROL 45 mg/dl; LDL CHOLESTEROL CALCULATED 70 mg/dl
--- NOTE | 2017-02-16 07:41 | CODING QUERY MEDICAL NECESSITY ---
SUPPORTING DIAGNOSIS NEEDED A supporting diagnosis is required for the test/procedure performed on this patient in order for us to be reimbursed by the patient's insurance. Please provide a supporting diagnosis for the following test/procedure listed below next to the test name along with your signature. *If there is no additional diagnosis for this patient that would support the following test/procedure please document that below next to the test/procedure. Test(s)/Procedure(s) that require a supporting diagnosis: * VITAMIN D, 25- HYDROXY DIAGNOSIS: Provider Signature: Date: Thank you Yvonne Baum [employer] Once completed, please kindly fax back to [phone] For questions please call [phone]
== END | disposition home or self-care (01) ==
LOC: C.LABPVFM 09:18
PROVIDERS: ATTEND Internal Medicine
DX: I10 Essential (primary) hypertension (principal); E78.5 Hyperlipidemia, unspecified; E55.9 Vitamin D deficiency, unspecified

== ENCOUNTER → 2017-02-01 | Outpatient (CLI) | payer OTHER, BC ==
[2017-02-01 12:43] LABS: MEAN CELL VOLUME 100.5 fL (80-100); MEAN CORPUSCULAR HEMOGLOBIN 31.7 pg (25-34); MEAN CORPUSCULAR HGB CONC 31.6 g/dl (32-36); PLATELET COUNT 257 K/uL (130-400); RED BLOOD COUNT 4.38 M/uL (4.2-5.4); WHITE BLOOD COUNT 5.31 K/uL (4.8-10.8)
[2017-02-01 13:04] LABS: BLOOD UREA NITROGEN 22 mg/dl (7-18); BUN/CREATININE RATIO 26.5 (10-20); CALCIUM 10.5 mg/dl (8.5-10.1); CARBON DIOXIDE 30 mmol/L (21-32); CHLORIDE 106 mmol/L (98-107); CREATININE 0.83 mg/dl (0.60-1.20); GLUCOSE 98 mg/dl (70-99); SODIUM 141 mmol/L (136-145)
== END | disposition home or self-care (01) ==
LOC: C.LABPVFM 08:54
PROVIDERS: ATTEND Internal Medicine
DX: E83.52 Hypercalcemia (principal)